=== PATIENT | female | born 1955 | race African-American/Black ===

== ENCOUNTER 2017-02-13 09:27 | Emergency (ER) | payer MEDICAID ==
[~2017-02-13] VITALS: Ht 152.4 cm; Wt 113.0 kg
[2017-02-13 10:48] LABS: BASOPHILS % 1.2 % (0.0-2.0); EOSINOPHILS % 1.3 % (0.0-5.0); HEMATOCRIT. 40.2 % (36.0-48.0); HEMOGLOBIN. 13.8 g/dL (12.0-16.0); LYMPHOCYTES % 16.5 % (20.0-50.0); MEAN CORPUSCULAR HEMOGLOBIN 29.2 pg (28.0-32.0); MEAN CORPUSCULAR HGB CONC 34.3 g/dL (31.0-37.0); MEAN CORPUSCULAR VOLUME 85.2 fL (81.0-99.0); MEAN PLATELET VOLUME 8.5 fl (7.4-10.4); MONOCYTES % 5.5 % (2.0-8.0); NEUTROPHILS % 75.5 % (40.0-76.0); PLATELET 219 x1000/uL (130-400); RED BLOOD CELL COUNT 4.72 mill/uL (4.2-5.4); RED CELL DISTRIBUTION WIDTH 13.9 % (11.6-14.6); WHITE BLOOD COUNT 12.1 x1000/uL (4.5-11.0)
[2017-02-13 10:55] LABS: INR 1.1; PROTHROMBIN TIME 11.4 sec
[2017-02-13 11:00] LABS: ANION GAP 12; CALCIUM 8.4 mg/dL (8.5-10.1); CARBON DIOXIDE 27 mEq/L (21-32); CHLORIDE 101 mEq/L (98-107); INDEX HEMOLYSI 1 (1-3); INDEX ICTERIC 1 (1-4); INDEX LIPEMIC 1 (1-3); LIPASE 161 IU/L (73-393); UREA NITROGEN BLOOD 15 mg/dL (7-21)
[2017-02-13 11:05] LABS: ALANINE AMINOTRANSFERASE 12 IU/L (13-61); eGFR 55 mL/min (>60)
[2017-02-13 11:34] LABS: CLARITY URINE CLEAR (CLEAR); COLOR URINE YELLOW (YELLOW); GLUCOSE URINE 3+ (NEGATIVE); KETONES URINE NEGATIVE (NEGATIVE); LEUKOCYTE ESTERASE URINE 2+ (NEGATIVE); NITRITE URINE NEGATIVE (NEGATIVE); OCCULT BLOOD URINE 3+ (NEGATIVE); PROTEIN URINE 2+ (NEGATIVE); SPECIFIC GRAVITY URINE 1.017 (1.005-1.030); UROBILINOGEN URINE 0.2 E.U./dL (0.2-1.0)
[2017-02-13 11:49] LABS: BACTERIA URINE 2+; RBC URINE 50-100 /hpf (0-2); SQUAMOUS EPITHELIAL CELL URINE FEW /lpf (RARE/1+); WBC URINE TNTC /hpf (0-2)
[2017-02-13 12:04] VITALS: BP 128/59
== END 2017-02-13 12:15 | disposition home or self-care (01) ==
LOC: ER 10:14
DX: N39.0 Urinary tract infection, site not specified (principal); E11.9 Type 2 diabetes mellitus without complications; I10 Essential (primary) hypertension
CPT/HCPCS: 36415; 80053; 81001; 83690; 85025; 85610; 99284; Z7610

== ENCOUNTER 2021-01-19 17:07 | Emergency (ER) | payer OTHER ==
[~2021-01-19] VITALS: Ht 152.4 cm; Wt 108.0 kg
[2021-01-19] MEDS ORDERED: FAMOTIDINE 20MG/2ML VIAL IV STA (18:16)
[2021-01-19] MEDS ORDERED: ONDANSETRON HCL 4MG/2ML INJ IV STA (18:16)
[2021-01-19] MEDS ORDERED: SODIUM CHLORIDE 0.9% 1,000 ML IV ONE (18:30)
[2021-01-19 19:01] LABS: HEMOGLOBIN. 16.2 g/dL (12.0-16.0); MEAN CORPUSCULAR HEMOGLOBIN 27.7 pg (28.0-32.0); MEAN CORPUSCULAR VOLUME 83.7 fL (81.0-99.0); PLATELET 299 x1000/uL (130-400); RED BLOOD CELL COUNT 5.85 mill/uL (4.2-5.4); RED CELL DISTRIBUTION WIDTH 13.9 % (11.6-14.6)
[2021-01-19 19:05] LABS: CHLORIDE 94 mEq/L (98-107)
[2021-01-19 19:08] LABS: INR 1.1; PROTHROMBIN TIME 11.9 sec (9.6-11.0)
[2021-01-19 19:26] LABS: PLATELET ESTIMATE NORMAL
[2021-01-19] MEDS ORDERED: SODIUM CHL 0.9% + KCL 20MEQ/L 1,000 ML IV ONE (19:30)
[2021-01-19] MEDS ORDERED: METRONIDAZOLE 500 MG PREMIX 100 ML IV NR (21:00)
[2021-01-19] MEDS ORDERED: CEFTRIAXONE 1 G PREMIX 50 ML IV NR (21:00)
[2021-01-19] MEDS ORDERED: POTASSIUM CHLORIDE INJ 40 MEQ in DEXT 5% WATER 250 ML IV ONE (21:30)
[2021-01-19 22:00] VITALS: BP 118/62
[2021-01-19] MEDS ORDERED: SODIUM CHLORIDE 0.9% 500 ML IV ONE (22:30)
== END 2021-01-19 23:32 | disposition short-term general hospital (02) ==
LOC: ER 17:07
DX: R11.2 Nausea with vomiting, unspecified (principal); R10.13 Epigastric pain; E11.9 Type 2 diabetes mellitus without complications; I10 Essential (primary) hypertension; Z98.890 Other specified postprocedural states
CPT/HCPCS: 36415; 71045; 74176; 80053; 82962; 83605; 83690; 84484; 85025; 85610; 87040; 93005; 96361; 96365; 96375; 99285; J0696; J2405; J3480; J3490; J7030; J7060